=== PATIENT | male | born 1970 | race Caucasian/White ===

== ENCOUNTER 2017-12-04 09:00 | Emergency (ER) | payer SELFPAY ==
[2017-12-04] MEDS ORDERED: METHYLPREDNISOLONE 125 MG INJ ONE (09:38)
--- NOTE | 2017-12-04 09:52 | ER ---
Nurse's Notes [facility] Name: Abraham Monae Age: 47 yrs Sex: Male : 1970 Arrival Date: 12/04/2017 Time: 09:04 Bed 16 Private MD: None, None Diagnosis: Irritant contact dermatitis Presentation: 12/04 09:15 Presenting complaint: Patient states: "I got into poison becca and now the rash on my aa5 left arm is draining". Pt c/o rash to left arm since Monday. 09:15 Transition of care: patient was not received from another setting of care. Onset of aa5 symptoms was November 2017. Risk Assessment: Do you want to hurt yourself or someone else? Patient reports no desire to harm self or others. Initial Sepsis Screen: Does the patient meet any 2 criteria? No. Patient's initial sepsis screen is negative. Does the patient have a suspected source of infection? No. Patient's initial sepsis screen is negative. Care prior to arrival: None. 09:15 Method Of Arrival: Ambulatory aa5 09:15 Acuity: DENIS 5 aa5 Historical: - Allergies: 09:24 No Known Allergies; aa5 - PMHx: 09:24 Diabetes - NIDDM; Hypertension; Hyperlipidemia; aa5 - PSHx: 09:24 L shoulder; aa5 - Immunization history:: Adult Immunizations up to date. - Social history:: Smoking status: Patient/guardian denies using tobacco. - Ebola Screening: : No symptoms or risks identified at this time. Screenin:54 Abuse screen: Denies threats or abuse. Nutritional screening: No deficits noted. ae1 Tuberculosis screening: No symptoms or risk factors identified. Fall Risk None identified. Assessment: 09:30 General: Appears in no apparent distress. uncomfortable, well groomed, Behavior is ae1 calm, cooperative. Pain: Complains of pain in left bicep, left antecubital area and dorsal aspect of left forearm. Neuro: Level of Consciousness is awake, alert, obeys commands, Oriented to person, place, time, situation. Cardiovascular: skin is warm and dry except for left inner forearm and inner upper arm.. Respiratory: Airway is patent Respiratory effort is even, unlabored, Respiratory pattern is regular, symmetrical. GI: No signs and/or symptoms were reported involving the gastrointestinal system. : No signs and/or symptoms were reported regarding the genitourinary system. EENT: No signs and/or symptoms were reported regarding the EENT system. Derm: Rash noted that is draining clear fluid, itchy, red, raised. Musculoskeletal: Swelling present in left bicep, left antecubital area and dorsal aspect of left forearm. Vital Signs: 09:34 BP 131 / 93; Pulse 77; Resp 18; Temp 98.6(O); Pulse Ox 96% on R/A; ae1 ED Course: 09:04 Patient arrived in ED. mr 09:04 None, None is Private Physician. mr 09:15 Arm band placed on Patient placed in an exam room, on a stretcher. aa5 09:18 Venkat Cifuentes, RN is Primary Nurse. ae1 09:19 Pablo Alarcon MD is Attending Physician. 09:23 Triage completed. aa5 09:53 Bed in low position. Call light in reach. Side rails up X 1. Pulse ox on. NIBP on. ae1 09:58 No provider procedures requiring assistance completed. Patient did not have IV access ae1 during this emergency room visit. Administered Medications: 09:38 Drug: SOLU-Medrol 125 mg Route: IM; Site: right gluteus; ae1 09:59 Follow up: Response: No adverse reaction ae1 Outcome: 09:51 Discharge ordered by . gs 09:58 Discharged to home ambulatory, with significant other. ae1 09:58 Condition: stable 09:58 Discharge instructions given to patient, Instructed on discharge instructions, follow up and referral plans. medication usage, Demonstrated understanding of instructions, Prescriptions given X 1. 09:59 Patient left the ED. ae1 Signatures: Ely Woodward AlfredoSarah, RN RN aa5 Venkat Cifuentes, RN RN ae1 Pablo Alarcon MD MD
--- NOTE | 2017-12-04 09:52 | EDPHYS ---
Physician Documentation [facility] Name: Abraham Monae Age: 47 yrs Sex: Male : 1970 Arrival Date: 12/04/2017 Time: 09:04 Bed 16 Private MD: None, None ED Physician Pablo Alarcon HPI: 12/04 09:48 This 47 yrs old Male presents to ER via Ambulatory with complaints of Poison gs Marianela. 09:48 The patient's rash thought to be caused by Dermatitis. The rash is located on the gs dorsal aspect of left forearm. The rash can be described as papular, raised. Onset: The symptoms/episode began/occurred 2 day(s) ago, and became worse and became persistent. Associated signs and symptoms: Pertinent negatives: fever. Severity of symptoms: At their worst the symptoms were moderate in the emergency department the symptoms are unchanged. The patient has experienced similar episodes in the past, a few times. The patient has not recently seen a physician. Historical: - Allergies: 09:24 No Known Allergies; aa5 - PMHx: 09:24 Diabetes - NIDDM; Hypertension; Hyperlipidemia; aa5 - PSHx: 09:24 L shoulder; aa5 - Immunization history:: Adult Immunizations up to date. - Social history:: Smoking status: Patient/guardian denies using tobacco. - Ebola Screening: : No symptoms or risks identified at this time. ROS: 09:48 All other systems are negative. gs Exam: 09:48 Eyes: Pupils equal round and reactive to light, extra-ocular motions intact. Lids and gs lashes normal. Conjunctiva and sclera are non-icteric and not injected. Cornea within normal limits. Periorbital areas with no swelling, redness, or edema. Cardiovascular: Regular rate and rhythm with a normal S1 and S2. No gallops, murmurs, or rubs. Normal PMI, no JVD. No pulse deficits. Respiratory: Lungs have equal breath sounds bilaterally, clear to auscultation and percussion. No rales, rhonchi or wheezes noted. No increased work of breathing, no retractions or nasal flaring. Abdomen/GI: Soft, non-tender, with normal bowel sounds. No distension or tympany. No guarding or rebound. No evidence of tenderness throughout. MS/ Extremity: Pulses equal, no cyanosis. Neurovascular intact. Full, normal range of motion. 09:48 Constitutional: The patient appears alert, awake. 09:48 Skin: rash a moderate rash is noted, rash can be described as excoriated, papular, raised, contact dermatitis, on the dorsal aspect of left forearm. Vital Signs: 09:34 BP 131 / 93; Pulse 77; Resp 18; Temp 98.6(O); Pulse Ox 96% on R/A; ae1 MDM: 09:30 Patient medically screened. 09:48 Data reviewed: vital signs, nurses notes, and as a result, I will discharge patient. Response to treatment: the patient's symptoms have mildly improved after treatment. Administered Medications: 09:38 Drug: SOLU-Medrol 125 mg Route: IM; Site: right gluteus; ae1 09:59 Follow up: Response: No adverse reaction ae1 Disposition: 12/04/17 09:51 Discharged to Home. Impression: Irritant contact dermatitis. - Condition is Stable. - Discharge Instructions: Poison Marianela, [id number]. - Prescriptions for Prednisone 20 mg Oral Tablet - take 1 tablet by ORAL route once daily for 5 days; 5 tablet. - Work release form, Medication Reconciliation Form, Thank You Letter, Antibiotic Education, Prescription Opioid Use form. - Follow up: Private Physician; When: 2 - 3 days; Reason: Re-evaluation by your physician. Signatures: Sarah Fuentes RN RN aa5 Venkat Cifuentes RN RN ae1 Pablo Alarcon MD MD Corrections: (The following items were deleted from the chart) 09:59 09:51 12/04/2017 09:51 Discharged to Home. Impression: Irritant contact dermatitis. ae1 Condition is Stable. Forms are Medication Reconciliation Form, Thank You Letter, Antibiotic Education, Prescription Opioid Use. Follow up: Private Physician; When: 2 - 3 days; Reason: Re-evaluation by your physician. gs
== END 2017-12-04 09:59 | disposition home or self-care (01) ==
LOC: ER 09:00
DX: L23.7 Allergic contact dermatitis due to plants, except food (principal); L24.9 Irritant contact dermatitis, unspecified cause; E11.9 Type 2 diabetes mellitus without complications; I10 Essential (primary) hypertension; E78.5 Hyperlipidemia, unspecified
CPT/HCPCS: 96372; 99283; J2930